=== PATIENT | female | born 1965 | race Caucasian/White ===

== ENCOUNTER 2017-07-30 12:36 | Emergency (ER) | payer MEDICAID ==
[2017-07-30 12:50] VITALS: RESP 16; TEMP 98.2; O2SAT 96
--- NOTE | 2017-07-30 12:54 | EDPHY ---
H & P Time Seen by Provider: 07/30/17 12:49 HPI/ROS: CHIEF COMPLAINT: Right leg pain HISTORY OF PRESENT ILLNESS: Patient is a 51-year-old female who presents emergency department with right leg pain. She states she has a history of rheumatoid arthritis and has diffuse joint pain. She frequently has lower extremity pain. Really she has had bilateral lower extremity pain. This is slightly worse in her knees. Her left leg has improved but she continues to have mild right leg pain. She was concerned that she had a clot in her right leg so she came to the emergency department. She had minimal posterior leg pain that is resolved. She has had bilateral lower extremity swelling which is also resolved. She states that she intermittently gets lower extremity swelling. She has occasional shortness of breath. Mild cough. No significant shortness of breath at this time. Cough is nonproductive. No fevers or chills. No recent fall or trauma. REVIEW OF SYSTEMS: My complete review of systems is negative except as mentioned in the HPI. Past Medical/Surgical History: Includes rheumatoid arthritis, hypertension Past surgical history: Cholecystectomy Smoking Status: Never smoked Physical Exam: Vitals noted. GENERAL: Well-appearing, in no acute distress, alert. Obese. HEENT: Eyes normal to inspection, normal pharynx, no signs of dehydration. NECK: No thyromegaly, no lymphadenopathy, supple. RESPIRATORY: Clear to auscultation bilaterally, no rales, rhonchi or wheezing. Normal. No respiratory distress. CVS: Regular rate and rhythm, no rubs, murmurs, or gallops. ABDOMEN: Soft, nontender, nondistended, no organomegaly. BACK: Normal to inspection, no CVA tenderness. SKIN: Normal color, no rash, warm, dry. No pallor. EXTREMITIES: No significant pedal edema, legs are symmetric. No calf tenderness, no Homans sign or cords, no joint swelling. No erythema or warmth. NEURO/PSYCH: Alert and oriented x3, normal mood and affect, normal motor sensory exam. No obvious cranial nerve deficit. Constitutional: Initial Vital Signs Temperature (C) 36.8 C 07/30/17 12:41 Heart Rate 64 07/30/17 12:41 Respiratory Rate 16 07/30/17 12:41 Blood Pressure 134/80 H 07/30/17 12:41 O2 Sat (%) 96 07/30/17 12:41 O2 Delivery Mode Room Air Allergies/Adverse Reactions: No Known Allergies Allergy (Unverified 03/16/15 17:08) Home Medications: Medication Instructions Recorded Amlodipine Besylate 03/16/15 Chlorthalidone 03/16/15 Enbrel 03/16/15 Gabapentin 03/16/15 Ibuprofen [Motrin (*)] 600 mg PO Q6 PRN #30 tab 03/16/15 Phentermine HCl 03/16/15 TOPIRAMATE 03/16/15 Amlodipine Besylate 07/30/17 Medical Decision Making - Diagnostics Imaging Results: Imaging Impressions Extremity Venous Study 07/30/17 12:50 Impression: 1. No evidence of deep vein thrombosis in the right lower extremity. 2. See above report for additional findings. Results called and discussed with Dr. JORDAN AHMADI on 07/30/2017 at 14:23 ED Course/Re-evaluation: In the emergency department I discussed possible etiologies with the patient. She did have right lower extremity pain was slightly worse than the left. I think this is secondary to her underlying rheumatoid arthritis, but I cannot fully rule out a DVT. She had an ultrasound of her right lower extremity. I do not feel she needs an x-ray at this time. Oxygen saturation is 98%. She has a normal respiratory exam. Ultrasound: Please refer the dictated report by Dr. López Trinidad. No DVT noted. 1425: I rechecked the patient. She had no new complaints. She appeared well. No respiratory distress. Her leg was unchanged. I discussed the results and answered all her questions. She was given warnings prior to leaving. She will follow up with primary care physician. Differential Diagnosis: My differential includes but is not limited to DVT, pneumonia, bronchitis, CHF, ACS, arterial occlusion, rheumatoid arthritis, gout, septic joint Departure - Departure Disposition: Home, Routine, Self-Care Clinical Impression: Right leg pain Condition: Good Instructions: Leg Pain (ED) Additional Instructions: Return with increasing leg pain, redness, fever, shortness of breath or any other concerns. Referrals: COLBY [facility],. [Primary Care Provider] - 2-3 days, if not improved
[2017-07-30 14:43] VITALS: BP 153/96; PULSE 67
== END 2017-07-30 14:41 | disposition home or self-care (01) ==
LOC: CED 12:36
DX: M79.604 Pain in right leg (principal); I10 Essential (primary) hypertension
CPT/HCPCS: 93971-PO

== ENCOUNTER 2018-12-10 08:52 | Emergency (ER) | payer MEDICAID ==
[2018-12-10 09:05] VITALS: BP 151/77
[2018-12-10] MEDS ORDERED: PATCH REMOVAL 1 EA PATCH TD ONE (09:15)
[2018-12-10] MEDS ORDERED: LIDOCAINE 4%/MENTHOL 1% PATCH TD ONE (09:15)
[2018-12-10] MEDS ORDERED: KETOROLAC 30 MG/1 ML SDV IM ONE (09:16)
--- NOTE | 2018-12-10 09:24 | EDPHY ---
H & P Time Seen by Provider: 12/10/18 08:57 HPI/ROS: HPI Lower back pain, leg pain. 53-year-old female by private vehicle. She presents to the emergency department with pain radiating from her right upper mid buttock region down the posterior aspect of her right thigh to just above the knee. She reports that this pain has been bothering her for the last 2 weeks but has been worse over the last 2 days. There is no history of trauma. She has had this pain in the past. She describes this pain as identical to the pain she has had in the past associated with sciatica. No fever. No bowel or bladder incontinence. No abdominal pain. No loss of sensation or weakness in her lower extremities. No history of malignancy. No history of acute traumatic event. She was seen in our emergency department in late July 2017 for this pain and was evaluated by ultrasound for DVT at that time which was negative. She has no history of asymmetric swelling of her right lower extremity or calf pain. No shortness of breath. ROS: Constitutional: No fever, no chills. As above. Respiratory: No cough. No shortness of breath. Cardiac: No chest pain, no palpitations. Gastrointestinal: No abdominal pain, no vomiting, no diarrhea. Genitourinary: No hematuria. No dysuria or increased frequency with urination. Musculoskeletal: As above. No neck pain. No myalgias or arthralgias. Skin: No rashes. Neurological: No headache. No focal weakness or altered sensation. Past medical history: Hypertension, rheumatoid arthritis, sciatica, cholecystectomy. Social history: She does not smoke. No alcohol. She is here by herself. Physical Exam: General Appearance: Alert, no distress. Obese habitus. This patient is responding to questions appropriately and in full sentences. This patient appears well-hydrated and well-nourished. Eyes: Pupils equal and round no pallor or injection. No lid edema, erythema or injection. Back exam: No midline thoracic, lumbar, sacral tenderness on palpation. Vague tenderness on palpation of the right sacroiliac area, lower aspect, no soft tissue swelling, erythema, warmth, edema or ecchymosis noted over this area. She has a negative same side and cross side straight leg raise test. She is neurologically intact in all myotomes in dermatomes of the bilateral lower extremities. There is no asymmetric swelling involving the bilateral lower extremities. No calf tenderness or palpable cords involving the bilateral lower extremities. Negative Kimmie sign bilaterally. Normal pulses and capillary refill distally in the bilateral lower extremities. Neurological: Motor sensory function is grossly intact. Cranial nerves are normal. Gait is normal. Skin: Warm and dry, no rashes. Extremities are symmetrical. All joints range without pain or impingement. Psychiatric: No agitation. No depression. Database: EKG: Imaging: Procedures: Emergency department course: Triage vital signs reviewed. She is moderately hypertensive. Vital signs are otherwise normal. This patient's presentation is consistent with sciatica. I feel DVT is unlikely. She is already taking gabapentin also takes oxycodone for chronic pain issues. She has no history of renal dysfunction. No history of gastric ulcers. She has no contraindications to NSAIDs. She will be given a 1 time intramuscular dose of Toradol. Will also place a lidocaine patch to her right lower sacroiliac area. 9:45 a.m., the patient was re-evaluated, she is feeling better at this time. Repeat neurologic Assessment is nonfocal. She feels comfortable going home. I discussed follow-up with her primary care physician at [facility] for re- evaluation and consideration of a MRI of the lumbar sacral spine to further evaluate her back pain and sciatica. She is in agreement with this plan. Return to emergency department precautions were discussed. She understands for follow-up. All of her questions were answered. She was discharged from the emergency department in good condition. Differential Diagnosis: The differential diagnosis on this patient includes but is not limited to sciatica. DVT, epidural compression syndrome, acute traumatic spinal injury, hip fracture, epidural hematoma, malignancy, AAA unlikely. This represents a partial list of diagnoses considered. These considerations are based on history , physical exam, past history, reassessment and diagnostic testing. Smoking Status: Never smoked Constitutional: Initial Vital Signs Temperature (C) 36.9 C 12/10/18 08:59 Heart Rate 70 12/10/18 08:59 Respiratory Rate 18 12/10/18 08:59 Blood Pressure 151/77 H 12/10/18 08:59 O2 Sat (%) 92 12/10/18 08:59 O2 Delivery Mode Room Air Allergies/Adverse Reactions: No Known Allergies Allergy (Verified 12/10/18 09:08) Home Medications: Medication Instructions Recorded Amlodipine Besylate 03/16/15 Chlorthalidone 03/16/15 Enbrel 03/16/15 Gabapentin 300 TID 03/16/15 Amlodipine Besylate 07/30/17 Lidocaine [Lidoderm] 1 each TP BID #6 adh..patch 12/10/18 Lidocaine [Lidoderm] 1 each TP DAILY #6 adh..patch 12/10/18 Prozac 20 MG (*) 12/10/18 Medical Decision Making - Data Points Medications Given: Discontinued Medications Ketorolac Tromethamine (Toradol) 60 mg IM EDNOW ONE Stop: 12/10/18 09:17 Last Admin: 12/10/18 09:36 Dose: 60 mg Miscellaneous Medication (Icy Hot Lidocaine/Menthol 4%/1% Patch) 1 patch TD EDNOW ONE Stop: 12/10/18 09:16 Last Admin: 12/10/18 09:40 Dose: 1 patch Departure - Departure Disposition: Home, Routine, Self-Care Clinical Impression: Sciatica of right side Condition: Good Instructions: Sciatica (ED) Additional Instructions: Read and follow provided instructions. Follow-up with your primary care physician or the non surgical back pain specialists at [facility] in 1-2 days for re-evaluation and further management. Take your pain medication as prescribed. Return to the emergency department for worsening pain, loss of sensation or weakness in your lower extremities, bowel or bladder incontinence or other serious concerns. Referrals: NONE *PRIMARY CARE P,. [Primary Care Provider] - As per Instructions [facility] [Outside] - As per Instructions Prescriptions: Lidocaine [Lidoderm] 1 each TP BID #6 adh..patch Lidocaine [Lidoderm] 1 each TP DAILY #6 adh..patch
== END 2018-12-10 09:50 | disposition home or self-care (01) ==
LOC: CED 08:52
DX: M54.41 Lumbago with sciatica, right side (principal)
CPT/HCPCS: 96372-ER; 99284-ER; J1885